=== PATIENT | female | born 1950 | race Caucasian/White ===

== ENCOUNTER → 2017-10-27 | Outpatient (CLI) | payer MEDICARE, BC ==
--- NOTE | 2017-10-28 14:25 | RADIOLOGY REPORT PS360 ---
DIG MAMM-SCREEN CHLOE W/CAD ORDERING PHYSICIAN : Arminda Washburn APRN PATIENT AGE: 67 years GENDER: Female COMPARISON: October 2013, 2013, 2014, 2015. HISTORY:Previous cyst aspiration right and left breast. No new complaints no hormones Family history of breast cancer includes maternal auntsx2.. TECHNIQUE: Std CC & MLO images were obtained. R2 CAD reviewed. FINDINGS: Moderate residual fibroglandular elements towards upper-outer quadrant right and left breast . No significant new areas concern. No new findings. No dominant mass. No suspicious calcification No architectural distortion. IMPRESSION: Stable mammogram with no new areas of concern. Bilateral follow-up in one year recommended BI-RADS CATEGORY: 1_Negative RECOMMENDED FOLLOWUP: 12M 12 MONTH FOLLOW-UP (A letter has been sent to the patient regarding results of the study.)
== END ==
LOC: RAD 09:30
DX: Z12.31 Encounter for screening mammogram for malignant neoplasm of breast (principal)
CPT/HCPCS: G0202

== ENCOUNTER → 2017-10-29 | Outpatient (CLI) | payer MEDICARE, BC ==
[2017-10-29 11:01] LABS: HEMOGLOBIN 13.8 g/dL (12.2-16.2); LYMPH # 2.1 K/mm3 (0.7-4.5); LYMPH % 42.1 % (10-50.0)
[2017-10-29 11:24] LABS: BUN 16 mg/dL (7-18)
[2017-10-29 11:31] LABS: GFR (ESTIMATED) 63 ML/MIN (59-)
== END ==
LOC: LAB 09:50
PROVIDERS: Internal Medicine Adolescent Medicine
DX: E78.00 Pure hypercholesterolemia, unspecified (principal); M85.80 Other specified disorders of bone density and structure, unspecified site; R73.9 Hyperglycemia, unspecified; M19.90 Unspecified osteoarthritis, unspecified site